=== PATIENT | male | born 1945 | race Caucasian/White ===

== ENCOUNTER 2020-06-19 15:37 | Outpatient (CLI) | payer MEDICARE, BC | END 2020-06-19 15:38 | disposition home or self-care (01) | LOC: CSHULT 15:37 | PROVIDERS: ATTEND Family Medicine | DX: I73.9 Peripheral vascular disease, unspecified (principal); I82.432 Acute embolism and thrombosis of left popliteal vein; I82.411 Acute embolism and thrombosis of right femoral vein; I70.203 Unspecified atherosclerosis of native arteries of extremities, bilateral legs | CPT/HCPCS: 93923 ==

== ENCOUNTER 2021-09-10 15:26 | Outpatient (CLI) | payer MEDICARE, BC | END 2021-09-10 15:27 | disposition home or self-care (01) | LOC: CSHMRI 15:26 | PROVIDERS: ATTEND Family Medicine | DX: M54.41 Lumbago with sciatica, right side (principal); G89.29 Other chronic pain; M47.816 Spondylosis without myelopathy or radiculopathy, lumbar region; M43.16 Spondylolisthesis, lumbar region; M48.062 Spinal stenosis, lumbar region with neurogenic claudication | CPT/HCPCS: 72148 ==